=== PATIENT | female | born 2000 | race Caucasian/White ===

== ENCOUNTER 2023-10-03 04:18 | Day surgery (SDC) | payer OTHER ==
[2023-10-01 15:15] VITALS: BMI 17.6
[2023-10-03 14:19] VITALS: BP 115/60; PULSE 85; RESP 20; TEMP 98
== END 2023-10-03 11:19 | disposition home or self-care (01) ==
LOC: JASU-ENDO 04:18
PROVIDERS: ATTEND Internal Medicine Gastroenterology
PROC: 0DJD8ZZ Inspection of Lower Intestinal Tract, Via Natural or Artificial Opening Endoscopic (ICD-10-PCS; principal; 2023-10-03 10:30)
DX: K92.1 Melena (principal); K64.8 Other hemorrhoids
CPT/HCPCS: 81025